=== PATIENT | female | born 1980 | race African-American/Black ===

== ENCOUNTER 2021-11-08 06:51 | Emergency (ER) | payer SELFPAY ==
[~2021-11-08] VITALS: Ht 167.6 cm; Wt 70.8 kg
[2021-11-08] MEDS ORDERED: FLUO20CA36 PO (07:36)
[2021-11-08] MEDS ORDERED: ARIP5TAB10 PO (07:36)
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
--- NOTE | 2021-11-08 07:41 | NUR ---
[employer] AT BEDSIDE
[2021-11-08 07:51] VITALS: BP 148/98
--- NOTE | 2021-11-08 07:51 | NUR ---
Patient discharged to home in stable condition. Written and verbal after care instructions given. Patient verbalizes understanding of instruction.
== END 2021-11-08 07:51 | disposition home or self-care (01) ==
LOC: ER 06:59
DX: F31.9 Bipolar disorder, unspecified (principal); Z59.00 Homelessness unspecified

== ENCOUNTER 2024-03-22 02:37 | Emergency (ER) | payer OTHER ==
[~2024-03-22] VITALS: Ht 167.6 cm; Wt 70.8 kg
[~2024-03-22 02:37] MED LIST: ARIP5TAB10 PO; FLUO20CA36 PO
[2024-03-22 03:09] LABS: HEMOGLOBIN 8.7 g/dL (11.5-14.8)
[2024-03-22 03:17] LABS: BASOPHILS % (AUTO) 0.4 % (0.0-2.0); EOSINOPHILS % (AUTO) 0.4 % (0.0-6.0); HEMATOCRIT 28 % (33-45); LYMPHOCYTES # (AUTO) 2.4 K/uL (0.8-4.8); LYMPHOCYTES % (AUTO) 30.2 % (20.0-44.0); MEAN CORPUSCULAR HEMOGLOBIN 22 PG (26.0-33.0); MEAN CORPUSCULAR HGB CONC 31 g/dl (31.0-36.0); MEAN CORPUSCULAR VOLUME 71 fL (82-100); MONOCYTES # (AUTO) 0.6 K/uL (0.1-1.30); MONOCYTES % (AUTO) 7.4 % (2.0-12.0); NEUTROPHILS % (AUTO) 61.6 % (43.0-81.0); PLATELET COUNT (AUTO) 505 K/uL (150-450); RED BLOOD CELL COUNT(AUTO) 3.91 MIL/uL (4.0-5.2); RED CELL DISTRIBUTION WIDTH 19.1 % (11.5-15.0)
[2024-03-22 03:26] LABS: ALANINE AMINOTRANSFERASE 14 U/L (12-78); ALBUMIN 3.6 g/dL (3.4-5.0); ALCOHOL, BLOOD < 3 mg/dL (0-10); ALKALINE PHOSPHATASE 62 U/L (46-116); ASPARTATE AMINOTRANSFERASE 9 U/L (15-37); BILIRUBIN,DIRECT 0.2 mg/dL (0.0-0.2); BILIRUBIN,TOTAL 0.4 mg/dL (0.2-1.0); CALCIUM, SERUM 8.4 mg/dL (8.5-10.1); CARBON DIOXIDE 24 mmol/L (21-32); CHLORIDE 104 mmol/L (98-107); CREATININE 0.6 mg/dL (0.6-1.3); GLUCOSE 97 mg/dL (74-106); POTASSIUM 3.1 mmol/L (3.5-5.1); SODIUM SERUM 142 mmol/L (136-145); TOTAL PROTEIN, SERUM 7.9 g/dL (6.4-8.2); UREA NITROGEN, BLOOD 11 mg/dL (7-18)
[2024-03-22 03:29] LABS: SALICYLATE 1.5 mg/dL (2.8-20.0)
[2024-03-22 03:30] LABS: ACETAMINOPHEN <10 ug/ml (10-30)
[2024-03-22 03:32] LABS: APPEARANCE,URINE SLIGHTLY CLOUDY (CLEAR); BILIRUBIN,URINE 1+ (NEGATIVE); BLOOD, URINE TRACE-INTA Ery/uL (NEGATIVE); COLOR,URINE YELLOW (YELLOW); KETONES,URINE 2+ mg/dL (NEGATIVE); LEUKOCYTE ESTERASE ,URINE 1+ (NEGATIVE); NITRITE, URINE NEGATIVE (NEGATIVE); PROTEIN,URINE TRACE mg/dl (NEGATIVE); UGLUCOSE NEGATIVE (NEGATIVE); UROBILINOGEN,URINE 0.2 EU/dL (0.2)
[2024-03-22] MEDS ORDERED: diphenhydrAMINE HCL 25 MG CAPSULE ONE (03:40)
[2024-03-22] MEDS ORDERED: OLANZAPINE 5 MG TABLET ONE (03:40)
[2024-03-22 03:42] LABS: AMPHETAMINE, URINE NEGATIVE (NEGATIVE); BARBITURATE, URINE NEGATIVE (NEGATIVE); BENZODIAZEPINE, URINE NEGATIVE (NEGATIVE); CANNABINOID, URINE NEGATIVE (NEGATIVE); COCCAINE, URINE NEGATIVE (NEGATIVE); OPIATE, URINE NEGATIVE (NEGATIVE); PHENCYCLIDINE SCREEN,URINE NEGATIVE (NEGATIVE)
[2024-03-22] MEDS: OLANZAPINE 5 MG TABLET PO ONE (03:45)
[2024-03-22] MEDS: diphenhydrAMINE HCL 25 MG CAPSULE PO ONE (03:45)
[2024-03-22 03:46] LABS: ADD URINE CULTURE YES; BACTERIA,URINE Moderate /HPF (None Seen); SQUAMOUS EPITHELIAL CELL,UR Many /HPF (None Seen)
[2024-03-22 04:19] LABS: LYMPHOCYTES % (MANUAL) 30 % (16-48); MONOCYTES % (MANUAL) 7 % (0-11.0); NEUTROPHILS % (MANUAL) 63 (42-76)
[2024-03-22 04:20] LABS: ANISOCYTOSIS 2+; PLATELET ESTIMATE ADEQUATE
[2024-03-22] MEDS ORDERED: NITROFURANTOIN/MONOHYDRATE MACROCRYSTALS 100 MG CAPSULE ONE ×2 (04:52→04:55)
[2024-03-22] MEDS: NITROFURANTOIN/MONOHYDRATE MACROCRYSTALS 100 MG CAPSULE PO ONE (05:04)
[2024-03-22] MEDS ORDERED: POTASSIUM CHLORIDE 20 MEQ TAB.PRT.SR PO ONE (08:36)
[2024-03-22] MEDS: POTASSIUM CHLORIDE 20 MEQ TAB.PRT.SR PO ONE (08:39)
[2024-03-22 12:44] VITALS: BP 142/55; TEMP 98.5; O2SAT 98
== END 2024-03-22 12:44 ==
LOC: ER 02:39
DX: R45.851 Suicidal ideations (principal); R44.0 Auditory hallucinations; R10.2 Pelvic and perineal pain; Z59.00 Homelessness unspecified; Z20.822 Contact with and (suspected) exposure to COVID-19
CPT/HCPCS: 99285; 85025; 80048; 87086; 80076; 85007; 81001; 36415; 84702; 87426; 80143; 80320; 80307; Q0163; G0480